=== PATIENT | female | born 1995 | race Caucasian/White ===

== ENCOUNTER 2017-08-18 00:17 | Inpatient (IN) ==
[2017-08-18] MEDS ORDERED: MEPERIDINE 50 MG/1 ML VIAL IM PRN (00:43)
[2017-08-18] MEDS ORDERED: LACTATED RINGERS 1,000 ML IV SCH (01:00)
[2017-08-18] MEDS ORDERED: OXYTOCIN/LR 20 UNIT/1,000 ML BAG IV SCH (01:00)
[2017-08-18 01:01] LABS: Basophils # 0.1 10*3/uL (0.0-0.2); Basophils % 0.4 % (0.0-0.8); Eosinophils # 0.1 10*3/uL (0.0-0.87); Eosinophils % 0.5 % (0.00-10.9); Hematocrit 31.2 VOL% (35.7-47.0); Immature Granulocytes % 0.6 %; Immature Granulocytes Absolute 0.09 #; Lymphocytes # 2.5 10*3/uL (1.4-4.0); Lymphocytes % 17.9 % (21.3-54.2); Mean Corpuscular HGB Conc 32.1 GM/DL (32-36); Mean Corpuscular Hemoglobin 27 PG (27-34); Mean Corpuscular Volume 84.6 FL (87-102); Monocytes # 0.8 10*3/uL (0.11-0.8); Monocytes % 5.6 % (1.7-12.7); Neutrophils # 10.7 10*3/uL (1.4-7.4); Platelet Count 235 T/CUMM (130-400); Red Blood Count 3.69 MC/CUMM (3.8-5.5); Red Cell Distribution Width 13.8 % (9.3-17.3); White Blood Count 14.2 T/CUMM (4-12)
[2017-08-18 01:08] LABS: Apearance,Urine Slightly Hazy (Clear); Bacteria,Urine Occasional /HPF (Few); Bilirubin,Urine Negative (Negative); Blood, Urine Small mg/dL (Negative); Glucose,Urine (UA) Negative (Negative); Hyaline Casts,Urine 1 /LPF (0-3); Ketones,Urine Negative (Negative); Mucus,Urine Occasional /LPF (Occasional); Nitrite,Urine Negative (Negative); Protein,Urine 30 MG/DL; RBC,Urine 2 /HPF (0-4); Squamous Epithelial Cell,Urine Occasional /HPF (0-10); Urine Color Yellow (Yellow); Urine Specific Gravity 1.014 (1.001-1.035); Urine Urobilinogen < 2.0 EU/DL (0.2-1.0); WBC,Urine 15 /HPF (0-6)
[2017-08-18] MEDS: BUTORPHANOL 2 MG/ML VIAL IV PRN ×2 (03:28→06:12)
[2017-08-18] MEDS: ONDANSETRON 4 MG/2 ML VIAL IV PRN ×2 (03:28→08:32)
[2017-08-18] MEDS ORDERED: LIDOCAINE 1% 50 ML VIAL ONE (07:15)
[2017-08-18] MEDS ORDERED: miSOPROStol 200 MCG TABLET ONE (07:16)
[2017-08-18] MEDS ORDERED: MEPERIDINE 50 MG/1 ML VIAL IV PRN (08:32)
[2017-08-18] MEDS ORDERED: HYDROCORTISONE 2.5% RECTAL CREAM 30 GM TUBE TOP PRN (08:46)
[2017-08-18] MEDS ORDERED: WITCH HAZEL PADS 100/JAR TOP PRN (08:46)
[2017-08-18] MEDS ORDERED: IBUPROFEN 800 MG TABLET PO PRN (08:46)
[2017-08-18] MEDS ORDERED: oxyCODONE/ACETAMINOPHEN 5-325 MG TABLET PO PRN ×2 (08:46)
[2017-08-18] MEDS ORDERED: ONDANSETRON 4 MG/2 ML VIAL IV PRN (08:46)
[2017-08-18] MEDS ORDERED: LANOLIN 50% CREAM 0.3 OZ TUBE TOP PRN (08:46)
[2017-08-18] MEDS ORDERED: BISACODYL 10 MG SUPP RECTAL PRN (08:46)
[2017-08-18] MEDS ORDERED: OXYTOCIN/LR 20 UNIT/1,000 ML BAG IV ONE (08:46)
[2017-08-18] MEDS ORDERED: BENZOCAINE 20%/MENTHOL 0.5% SPRAY 56 GM CAN TOP PRN (08:46)
[2017-08-18] MEDS ORDERED: DIPH/TET/ACEL PERT BOOSTER VACCINE 0.5 ML VIAL IM ONE (08:46)
[2017-08-18] MEDS ORDERED: RHO(D) IMMUNE GLOBULIN 300 MCG SYRINGE IM ONE (08:46)
[2017-08-18] MEDS ORDERED: MEASLES/MUMPS/RUBELLA VACCINE 0.5 ML VIAL SUBCUT ONE (08:46)
[2017-08-18] MEDS ORDERED: ACETAMINOPHEN 325 MG TABLET PO PRN (08:46)
[2017-08-18] MEDS: DOCUSATE SODIUM 100 MG CAPSULE PO SCH (21:33)
[2017-08-19 06:07] LABS: Basophils # 0.1 10*3/uL (0.0-0.2); Basophils % 0.4 % (0.0-0.8); Eosinophils # 0.1 10*3/uL (0.0-0.87); Eosinophils % 0.6 % (0.00-10.9); Hemoglobin 7.7 GM/DL (12.0-16.0); Immature Granulocytes % 0.6 %; Lymphocytes # 3.5 10*3/uL (1.4-4.0); Lymphocytes % 22.3 % (21.3-54.2); Mean Corpuscular HGB Conc 30.8 GM/DL (32-36); Mean Corpuscular Hemoglobin 27 PG (27-34); Mean Corpuscular Volume 86.5 FL (87-102); Monocytes # 0.9 10*3/uL (0.11-0.8); Monocytes % 5.9 % (1.7-12.7); Neutrophils % 70.2 % (38.7-73.9); Platelet Count 186 T/CUMM (130-400); Red Blood Count 2.89 MC/CUMM (3.8-5.5); Red Cell Distribution Width 14.1 % (9.3-17.3); White Blood Count 15.7 T/CUMM (4-12)
[2017-08-19] MEDS: FERROUS SULFATE 325 MG TABLET PO SCH ×2 (09:42→21:46)
[2017-08-19] MEDS: DOCUSATE SODIUM 100 MG CAPSULE PO SCH ×2 (09:42→21:46)
[2017-08-19] MEDS: MULTIVITAMIN (PRENATAL) TABLET PO SCH (09:43)
[2017-08-20 08:32] VITALS: BP 141/81
[2017-08-20] MEDS: FERROUS SULFATE 325 MG TABLET PO SCH (09:35)
[2017-08-20] MEDS: DOCUSATE SODIUM 100 MG CAPSULE PO SCH (09:35)
[2017-08-20] MEDS: MULTIVITAMIN (PRENATAL) TABLET PO SCH (09:35)
== END 2017-08-20 12:15 | disposition home or self-care (01) | DRG 560 ==
LOC: N.LDOUT 00:17 → N.LD 00:19 → N.OB 11:26
PROVIDERS: ADMIT Specialist; ATTEND Specialist